=== PATIENT | female | born 1940 | race Caucasian/White ===

== ENCOUNTER 2020-10-11 00:43 | Inpatient (IN) | payer MEDICARE, OTHER, SELFPAY ==
[2020-10-11] VITALS (263 sets, daily range): BP systolic 90–146; BP diastolic 53–93; PULSE 56–103; RESP 9–31; TEMP 35.7–36.9; O2SAT 88–98; BMI 24.2
--- NOTE | 2020-10-11 00:48 | CTR_ITS ---
PROCEDURE INFORMATION: Exam: CT Head Without Contrast Exam date and time: 10/11/2020 12:53 AM Age: 80 years old Clinical indication: Weakness, facial; Additional info: Facial droop TECHNIQUE: Imaging protocol: Computed tomography of the head without contrast. Radiation optimization: All CT scans at this facility use at least one of these dose optimization techniques: automated exposure control; mA and/or kV adjustment per patient size (includes targeted exams where dose is matched to clinical indication); or iterative reconstruction. Other technique: STROKE PROTOCOL was implemented. COMPARISON: CT head wo con* [id number] 07/03/2019 1:36 PM RADIATION DOSE METRICS: Total DLP (mGy-cm): 846.86 FINDINGS: Brain: A small left occipital lobe chronic infarction is noted. Mild atrophy and mild white matter chronic microvascular changes are noted. No hemorrhage or CT evidence of acute infarction is seen. Cerebral ventricles: No ventriculomegaly. Bones/joints: Unremarkable. No acute fracture. Paranasal sinuses: Visualized sinuses are unremarkable. No fluid levels. Mastoid air cells: Visualized mastoid air cells are well aerated. Soft tissues: Unremarkable. CT/CT head wo con* [id number] IMPRESSION: No acute intracranial abnormality. ASSESSMENT: ASPECTS ([place] Stroke Program Early CT Score) is 10. Radiation Dose CTDIVOL = (mGy): DLP = 846.86 (mGy-cm)
--- NOTE | 2020-10-11 00:48 | CTR_ITS ---
PROCEDURE INFORMATION: Exam: CT Chest Without Contrast; Diagnostic Exam date and time: 10/11/2020 12:53 AM Age: 80 years old Clinical indication: Chest pain; Additional info: Cp, mi, stroke TECHNIQUE: Imaging protocol: Diagnostic computed tomography of the chest without contrast. Radiation optimization: All CT scans at this facility use at least one of these dose optimization techniques: automated exposure control; mA and/or kV adjustment per patient size (includes targeted exams where dose is matched to clinical indication); or iterative reconstruction. COMPARISON: [place] Chest 1 [place] [id number] 07/03/2019 12:51 PM RADIATION DOSE METRICS: Total DLP (mGy-cm): 911.06 FINDINGS: Lungs: Mild dependent atelectasis noted. Fissural lymph node at anterior minor fissure. Pleural space: Unremarkable. No pneumothorax. No pleural effusion. Heart: Mitral annular calcifications. Coronary calcifications are noted. Mediastinal space: Small to moderate hiatal hernia. Aorta: There is borderline prominence of ascending aorta measuring 4 cm. Lymph nodes: Unremarkable. No enlarged lymph nodes. Liver: Indeterminate central hepatic lesion measures 2.6 cm . Gallbladder and bile ducts: Cholelithiasis is noted. Gallbladder is otherwise unremarkable with normal wall thickness and volume. No pericholecystic reactive change. Bones/joints: No acute fracture. Soft tissues: Unremarkable. CT/CT chest con [id number] IMPRESSION: No acute findings. Cholelithiasis. Indeterminate liver lesion; recommend further evaluation with liver MRI. Additional details as above. Radiation Dose CTDIVOL = (mGy): DLP = 911.06 (mGy-cm)
--- NOTE | 2020-10-11 00:49 | ECG_ITS ---
[facility] Test Date: 2020-10-11 Pat Name: Jane Roach Department: Room: ICU10 Gender: Female Manager Garden: : 1940 Requested By: Leela Martinez Order Number: [id number] Rivera MD: CHARLOTTE CALVIN Measurements Intervals Rufe Rate: 78 P: 11 TX: 284 QRS: -3 QRSD: 88 T: 78 QT: 354 QTc: 403 Interpretive Statements SINUS RHYTHM WITH FIRST DEGREE AV BLOCK ST ELEVATION, CONSIDER ANTERIOR INJURY [MARKED ST ELEVATION W/O NORMALLY INFLECTED T WAVE IN V2-V5] MARKED ST ELEVATION, CONSIDER INFERIOR INJURY [MARKED ST ELEVATION W/O NORMALLY INFLECTED T WAVE IN II/aVF] ACUTE CT Compared to ECG 07/03/2019 17:57:37 First degree AV block now present ST (T wave) deviation now present Sinus bradycardia no longer present Myocardial infarct finding still present Electronically Signed On 10-11-2020 15:22:17 [email or web address] TEACHER by CHARLOTTE CAVLIN [id number]
--- NOTE | 2020-10-11 01:00 | P.HP_ITS ---
Providers/Chief Complaint Primary Care Provider: Maximo Yee Chief Complaint: stemi History of Present Illness Jane Roach is a 80 year old female past medical history significant for hypertension hyperlipidemia and TIA was having chest pain since Thursday off and on basis, she brushed it off thinking that it is heartburn nearly 1 hour ago chest pain became more consistent and intense, her called 911, EKG strips were consistent with inferior leads ST elevation with anterior reciprocal changes it is the reason STEMI page was alerted. On route patient degenerated into V. fib, few seconds into CPR she reverted back into sinus rhythm and remained stable. It was also noted that she developed facial droop. In the ER twelve-lead EKG was also consistent with inferior wall ST elevation DE with reciprocal changes. Due to new onset of facial droop patient is taken for head CT to rule out intracranial bleed. Medications/Allergies Home Medications Medication Instructions Recorded Confirmed Last Taken Type ascorbic acid (vitamin C) [Vitamin 500 mg PO DAILY 10/11/20 10/11/20 Unknown History C] aspirin 81 mg PO DAILY 10/11/20 10/11/20 Unknown History atenolol 25 mg PO DAILY 10/11/20 10/11/20 Unknown History cholecalciferol (vitamin D3) 25 mcg PO DAILY 10/11/20 10/11/20 Unknown History [Vitamin D3] gabapentin 300 mg PO QID 10/11/20 10/11/20 Unknown History levothyroxine 100 mcg PO DAILY 10/11/20 10/11/20 Unknown History pravastatin 20 mg PO DAILY 10/11/20 10/11/20 Unknown History triamterene-hydrochlorothiazid 1 cap PO DAILY 10/11/20 10/11/20 Unknown History Allergies Allergy/AdvReac Type Severity Reaction Status Date / Time levofloxacin Allergy ALGY-Joint Verified 10/11/20 07:10 Pain lovastatin [From Mevacor] Allergy ADR-Dizzine Verified 10/11/20 07:10 ss PFSH Acute PFSH: Medical History (Updated 10/11/20 @ 12:49 by Shanell Talbot MD) Hyperlipidemia associated with type 2 diabetes mellitus Vitals/I&O/Wt Last Vital Signs Temp 97.4 F L 10/11/20 00:48 Pulse 103 H 10/11/20 00:48 Resp 18 10/11/20 00:48 BP 130/82 10/11/20 00:48 Pulse Ox 94 10/11/20 00:48 Weight last 48 hrs Weight 150 lb Physical Exam Narrative: EXAM NARRATIVE: GENERAL: Patient is alert, awake and oriented x3. Moderate distress NECK: No jugular vein distension. HEENT: No cyanosis. No icterus. No pallor. HEART: Regular S1 and S2. No murmur, rub or gallop. LUNGS: Clear to auscultate bilaterally. ABDOMEN: Soft, nontender and nondistended. Positive bowel sounds. No guarding, rebound or tenderness. CENTRAL NERVOUS SYSTEM: Facial droop EXTREMITIES: Lower extremities without edema bilaterally. Data : 10/11/20 03:47 10/12/20 04:23 A&P Assessment and plan (1) ST elevation DE (STEMI): Status: Acute Qualifiers: Involved coronary artery: right coronary artery Qualified Code(s): I21.11 - ST elevation (STEMI) myocardial infarction involving right coronary artery (2) Shock: Secondary to ST elevation DE of inferior wall. She will be taken to the [facility]. IV bolus followed by pressor Status: Acute Additional A&P Information For ST elevation DE we will take her urgently to [facility]. She will be loaded with Plavix aspirin statin and heparin. All risk benefit and alternative for the procedure has been explained to the patient including major bleed, arrhythmia, stroke, infection, emergent bypass and in worse case scenario. Patient agrees to it. She denies any contraindication to anticoagulation or antiplatelet. Further plan will be advised as per progress of the patient. Attestations Medical Necessity Statement*: I am expecting her stay to cross more than 2 midnight Coding Level of Care Code Acute Hand Upper And Bottom Lacer for [facility] Fwd Diagnoses ST elevation DE (STEMI) I21.11 Involved coronary artery: right coronary artery Shock R57.9
[2020-10-11] MEDS: ondansetron 2 mg/ML SDV 2 mL 4 MG IVP (01:03)
--- NOTE | 2020-10-11 01:06 | XACV_ITS ---
Exam Room: ICU10 Ht: 168 cm Wt: 68 kg BSA: 1.79 m2 Gender: Female : 1940 Exam Priority: Routine Procedure(s): Procedure Description: Diagnostic procedure Procedure Description: Left Heart Catheterization Diagnostic Cath Status: Emergency Diagnostic Findings * LM has 0% stenosis. * LAD has 0% stenosis. * 1st Diag: Mild 40% stenosis, OLLIE: 3 flow. * pCIRC: Moderate 50% stenosis, OLLIE: 3 flow. * Distal Circumflex Coronary Artery: Severe 90% stenosis, OLLIE: 2 flow. * Mid Right Coronary Artery: Severe 100% stenosis, OLLIE: 0 flow. * Coronary angiography shows right dominance. PCI Status: Emergency PCI Indication: STEMI - Immediate PCI for STEMI Interventional Findings * Distal Circumflex Coronary Artery: 90% stenosis treated with MDT R LASHAWN 2.5X12 NATO. 0% residual stenosis, OLLIE: 3 flow. * Mid Right Coronary Artery: 100% stenosis treated with AB TREK 2.25X15 RX BALLOON and MDT R LASHAWN 4.0X18 NATO. 0% residual stenosis, OLLIE: 3 flow. Conclusions 1. There is severe coronary artery disease with two vessel disease. 2. Distal Circumflex Coronary Artery was treated with Drug Eluting Stent. 3. Mid Right Coronary Artery was treated with Balloon and Drug Eluting Stent. Recommendations * 1-Return to inpatient for close monitoring and routine cath care 2-Risk factor modification for secondary prevention 3-Statin and aspirin 81 mg life--long, if tolerated 4-Patient was pre-loaded with 600 mg of Plavix, continue Plavix 75mg p.o. daily for at least one year. We will assess at the end of one year again to continue if further or not 5-Continue optimal medical management 6-Follow up with Dr. Talbot in four weeks and your primary care in 10 days. Interventional RX Recommendation: PCI w/o planned CABG Diagnostic RX Recommendation: PCI w/o planned CABG Pressures Phase:Rest AO : / ( 0 ) @ 7:19:00 PM 185 / 185 ( 69 ) @ 7:35:00 PM Clinical Evaluation EBL: 5mL-10mL Procedural Details Admit Source: Emergency department. Does the consent match the physician's order: N/A Emergent. Identified patient by full name and date of as verbalized by the patient/guarantor. Accurate & Complete Informed Consent: N/A Emergent. Inpatient/Outpatient History & Physical on Chart: N/A Emergent. If H&P is completed, is and addenduem needed: N/A Emergent; If yes, is the addendum complete: N/A Emergent. The risks, benefits, and alternatives of sedation and/or procedure were discussed by physician. The patient agrees to continue. Procedure started. Oxygen started at 3liters/min via nasal canula. bilateral groins was prepped with chloroprep then draped in the usual sterile fashion. Physician notified. Baseline sample Acquired. HR: 81 BPM. Physician arrived. Physician scrubbed in. Immediate Pre-Procedure Time Out. Correct Patient: N/A Emergent; Correct Procedure: Yes; Correct Site: Yes; Correct Patient Position: Yes; Correct Supplies: Yes; Dried Flammable Prep: Yes; Blood Products Available: N/A Emergent. Lidocaine 1% infiltrated to the right groin. Arterial access obtained with micropuncture set. Inventory is CRD 6FR JR 4 GUIDE 100cm. A 6 djiboutian JR4 catheter in over wire. Multiple views taken of right coronary artery. Catheter redirected to the RCA. Inflation number : 1 A AB TREK 2.25X15 RX BALLOON was prepped and advanced across the Mid RCA , then inflated to 18 NEEMA for 0:14 seconds. Results checked. Balloon out. Inflation Number : 2 Rubi Weeks LASHAWN 4.0X18 NATO -Lot Number# [id number] Exp: 06/26/2022 was prepped and advanced across the Mid RCA. The stent was deployed at 18 NEEMA for 0:22 seconds. Stent balloon out over wire. Results checked. [place] wire removed. Guide wire out. A 5 djiboutian JL4 catheter in over wire. Multiple views taken of left coronary artery. Catheter out. Inventory is CRD 6FR XB 3 GUIDE. 6 djiboutian XB 3 guide catheter was inserted over the wire. ACT drawn. ACT drawn. Results 289 seconds. Therapeutic limits - pre-heparin administration 90-150 seconds and monitoring heparin during a vascular procedure >250 seconds. Wire inserted into the Diagonal. Wire redirected into the Circ. wire removed. Inventory is TR 180cm Runthrough NS extra floppy 0.014 wire. Runthrough guidewire was advanced through the guide catheter to lesion in the Circ. Guide catheter out. Inventory is CRD 6FR JL 4 GUIDE. A 6 djiboutian JL4 catheter in over wire. Catheter out. Inventory is CRD 6FR AL 1 GUIDE. A 6 djiboutian AL1 catheter in over wire. Guide catheter out. Inventory is CRD 6FR XB 3 GUIDE. 6 djiboutian XB 3 guide catheter was inserted over the wire. Runthrough guidewire was advanced through the guide catheter to lesion in the Circ. Inflation Number : 1 A RYAN Weeks LASHAWN 2.5X12 NATO -Lot Number# [id number] Exp: 07/21/2022 was prepped and advanced across the Dist CX. The stent was deployed at 18 NEEMA for 0:13 seconds. Inflation number: 2 The stent balloon was then re-inflated across the Dist CX to 20 NEEMA for 0:08 seconds. Results checked. Stent balloon out over wire. Stent inserted to lesion in the distal Circ. Wire out. Drawing ACT. Groin shot performed. ACT drawn. Results 221 seconds. Therapeutic limits - pre-heparin administration 90-150 seconds and monitoring heparin during a vascular procedure >250 seconds. Sheath(s) sutured into position with 2-0 silk and sterile 4x4's and Op-site applied over the site. No oozing or signs and symptoms of hematoma noted. Arterial sheath flushed and connected to tranducer and pressure bag with heparinized saline. Medication's Wasted: Lidocaine 1% = 0 mg. Medication's Wasted: Heparin = 2000units. Medication's Wasted: Other = Fentanyl 50mc. Total IV fluids: 550 mL. Physician scrubbed out. PERRLA. Strong, equal hand body masker bilaterally. PCI Indication: STEMI. Post-op diagnosis: STEMI. Complications: none. Estimated blood loss: 5mL-10mL. Patient transferred by bed to ICU. [facility] Clinical Fraility Score: 4: Vulnerable. Pararescue Craftsman Indications: ACS <= 24 hours. Chest Pain Symptom Assessment: Typical Angina Symptoms. Cardiovascular Instability: Yes, if yes, Ventricular Arrhythmias. Procedure completed. A Suture was successful obtaining hemostatsis at the Right Femoral artery insertion site. Vital chart was stopped. Access Site Site: Right Femoral artery Sheath Size: 6 Fr Hemostasis Method: Suture Hemostasis Success: Successful Procedure Medications Start: 1:13 AM Stop: 1:13 AM Medication: Versed Amount: 1 mg Route: I.V. Start: 1:13 AM Stop: 1:13 AM Medication: Fentanyl Amount: 25 mcg Route: I.V. Start: 1:23 AM Stop: 1:23 AM Medication: Heparin Amount: 7000 units Route: I.V. Start: 1:27 AM Stop: 1:27 AM Medication: Aggrastat 12.5 mg/250 mL Amount: 34 ml Route: I.V. bolus Start: 1:27 AM Stop: 1:27 AM Medication: Aggrastat 12.5 mg/250 mL Amount: 12.2 ml/hr Route: I.V. bolus Start: 1:29 AM Stop: 1:29 AM Medication: 0.9% Saline Amount: 300 ml Route: I.V. bolus Start: 1:49 AM Stop: 1:49 AM Medication: Versed Amount: 1 mg Route: I.V. Start: 1:50 AM Stop: 1:50 AM Medication: Levophed (norepinephrine) Amount: 4 mcg/min Route: I.V. drip Start: 2:15 AM Stop: 2:15 AM Medication: Plavix Amount: 600 mg Route: P.O. I, the attending physician, have reviewed and verified all procedure medications. Yes, all medications given per verbal order History/Risk Factors Hypertension: No Dyslipidemia: No Peripheral Arterial Disease (PAD): No Myocardial Infarction ([place]): No Obesity: No Renal Disease: No Prior Interventions PCI: No CABG: No Valve Surgery: No Report Signatures Finalized by Shanell Talbot MD on 10/28/2020 05:33 PM
--- NOTE | 2020-10-11 01:07 | W.PM.OPSUD ---
Surgery/Procedure H&P Update DATE OF PROCEDURE: October 11, 2020 DATE H&P PERFORMED: 10/11/20 H&P UPDATE INFORMATION: I have examined patient prior to procedure PREOP DIAGNOSIS: STEMI PATIENT REASSESSED PRIOR TO SEDATION, WITH NO CHANGE NOTED: Yes PHYSICAL EXAM: alert, oriented x 3 and clear to auscultation bilaterally AIRWAY EVAL/ANESTHESIA PLAN: ASA II, Risks, benefits & alternatives of sedation and/or procedure discussed and Patient agrees to continue as planned
--- NOTE | 2020-10-11 01:14 | PC.NURSE ---
Pt arrived via EMS with symptom onset at 2330 last night. Pt had EMS zoll pads on. Pt was awake and disoriented. 1st ED ECG was completed at 0046 and given to ED physician in room. 2nd IV placed, ED zoll pads placed, cardiac monitoring. ED physician noted right sided facial droop and pt was taken to CT. ED physician, nurse tech, RN, and houseman accompanied. Beamster responded at 0056 and slabbing machine operator nurses arrived at 0103. Pt departed ED to slabbing machine operator at 0105.
[2020-10-11 01:28] LABS: Hematocrit 43.5 % (37.0-47.0); Hemoglobin 14.6 g/dL (11.5-15.3); Mean Corpuscular HGB Conc 33.6 g/dL (30.0-36.0); Mean Corpuscular Hemoglobin 31.9 pg (28.0-34.0); Mean Platelet Volume 9.6 fL (7.4-10.4); Platelet Count 258 10^3/cmm (130-400); Red Blood Count 4.58 10^6/uL (4.1-5.3); Red Cell Distribution Width 12.4 % (12.1-15.1); White Blood Count 9.6 10^3/uL (4.0-10.0)
[2020-10-11 01:35] LABS: Troponin(5th) Baseline 72 ng/L (0-10)
--- NOTE | 2020-10-11 01:37 | ED_ITS ---
HPI - Chest Pain General: Chief Complaint: Chest Pain Stated Complaint: stemi Time Seen by Provider: 10/11/20 00:48 History of Present Illness: HPI narrative: This patient is a 80-year-old female who was brought in by EMS. They had called a STEMI in the field. She had an episode of chest pain on Thursday that she ignored. Her pain started up again about an hour before she called EMS tonight. She denies history of cardiac disease but has had a stroke in the past. She said the stroke was light and did not leave her with any neurologic problems. She is not able to provide much history because she is in significant distress. She also had a V. fib arrest in the ambulance about 5 minutes out. After 1 round of CPR and 1 shock they got ROSC and she was awake and alert on arrival. On my initial evaluation I noted a right-sided facial droop. MD complaint: chest pain Onset (ago): hour(s) (1 hour, also on Thursday) Timing of current episode: constant Prior episodes: Yes Onset: during rest Pain location: substernal Pain radiation: neck Quality: aching Relieving factors: nothing Exacerbating factors: nothing Review of Systems General: Reports: ROS unobtainable due to medical condition Physical Exam Const: COMMON NORMALS: patient oriented x3 GENERAL APPEARANCE: in distress, anxious, ill appearing and diaphoretic NUTRITIONAL APPEARANCE: overweight HENMT: HEAD & SCALP: normal to inspection FACE & SINUS: face not symmetric Eye: GENERAL EYE: appearance normal, both eyes and all related structures Neck/C-Spine: COMMON NORMALS: supple, no meningeal signs and no JVD Chest: COMMONS NORMALS: normal inspection of the chest Resp: COMMON NORMALS: normal respiratory effort, No use of accessory muscles and clear to auscultation bilaterally AUSCULTATION: clear to auscultation bilaterally Cardio: COMMON NORMALS: no JVD, regular rate, regular rhythm and No murmurs present (Cardio) RATE: regular rate RHYTHM: regular rhythm GI: COMMON NORMALS: Normal to inspection, nondistended, normoactive bowel sounds present, Soft to palpation and non-tender INSPECTION: Yes normal to inspection AUSCULTATION: Yes normoactive bowel sounds PALPATION: Yes Soft to palpation Back/Pelvis: COMMON NORMALS: thoracic and lumbar spine normal to inspection Extremity: COMMON NORMALS: normal to inspection Neuro: COMMON NORMALS: patient oriented x3, moves all extremities, no focal motor deficits and no sensory deficits noted MENINGEAL SIGNS: Yes no meningeal signs CRANIAL NERVES: Yes other (Right-sided facial droop) SPEECH: speech normal Psych: COMMON NORMALS: mental status grossly normal, cooperative and normal affect Skin: COMMON NORMALS: no rashes or lesions noted GENERAL SKIN EXAM: no rashes or lesions noted and pallor Course ED course: STEMI had been called based on EMS EKG. Her EKG here definitely concurred with that assessment. She had marked ST elevation. Was also concerned with her right-sided facial droop and while waiting for the cath team to arrive we got a noncontrast CT head and chest. I do not see any evidence of hemorrhage or dissection on that. She went to the Car Park Attendant with Dr. Talbot shortly after the CT. Vital Signs: Vital signs: Vital Signs Temperature 96.5 F L 10/11/20 04:05 Pulse Rate 80 10/11/20 05:15 Respiratory Rate 18 10/11/20 05:15 Blood Pressure 127/85 10/11/20 05:15 Pulse Oximetry 97 10/11/20 05:15 MDM - Chest Pain Lab Data: Labs: Lab Results 10/11/20 10/11/20 10/11/20 Range/Units 00:52 00:52 00:52 WBC 9.6 (4.0-10.0) 10^3/ uL RBC 4.58 (4.1-5.3) 10^6/u L Hgb 14.6 (11.5-15.3) g/dL Hct 43.5 (37.0-47.0) % MCV 95.0 (81-99) fL MCH 31.9 (28.0-34.0) pg MCHC 33.6 (30.0-36.0) g/dL RDW 12.4 (12.1-15.1) % Plt Count 258 (130-400) 10^3/c mm MPV 9.6 (7.4-10.4) fL Lymph % (Auto) Not Reportable [place] % (Auto) Not Reportable Lymph # (Auto) Not Reportable [place] # (Auto) Not Reportable Total Counted 100 (0-100) Atypical Lymphs % 0.0 (0-5) % Absolute Neutrophi ls 3.6 (1.4-6.5) 10^3/c mm Segmented Neutroph ils 37 % Abs Segm Neuts (Ma n) 3.6 (1.6-7.1) 10/cmm Band Neutrophils 0.0 % Abs Band Neuts (Ma n) 0.0 (0.0-1.2) 10^3/c mm Lymphocytes (Manua l) 52 % Monocytes (Manual) 10.0 % Absolute Monocytes 1.0 H (0.1-0.6) 10^3/c mm Eosinophils (Manua l) 1 % Absolute Eosinophi ls 0.0 (0.0-0.7) 10^3/c mm Basophils (Manual) 0.0 % Absolute Basophils 0.0 (0.0-0.2) 10^3/c mm Platelet Estimate Normal (Normal) Anisocytosis Trace PT 13.50 (12.1-14.9) SECO NDS INR 1.00 (0.8-1.2) Sodium 142 (136-145) mmol/L Potassium 3.4 L (3.5-5.1) mmol/L Chloride 103 (98-107) mmol/L Carbon Dioxide 27 (22-29) mmol/L Anion Gap 15.4 (5-19) BUN 18 (8-23) mg/dL Creatinine 0.8 (0.5-0.9) mg/dL GFR Calculation Not Reportable Glucose 161 H (65-115) mg/dL Calculated Osmolal ity 299 H (285-295) mOsm/k g Calcium 10.2 (8.5-10.5) mg/dL Total Bilirubin 0.2 (0.15-1.2) mg/dL AST 21 (0-32) U/L ALT 17 (0-33) U/L Alkaline Phosphata se 106 H (35-105) IU/L Troponin T Baselin e (0-10) ng/L NT-Pro-B Natriuret Pep 89 (0-450) pg/mL Total Protein 6.9 (6.6-8.7) g/dL Albumin 4.2 (3.5-5.2) g/dL Globulin 2.7 (1.3-4.6) g/dL Lipase 27 (13-60) U/L 10/11/20 Range/Units 00:52 WBC (4.0-10.0) 10^3/ uL RBC (4.1-5.3) 10^6/u L Hgb (11.5-15.3) g/dL Hct (37.0-47.0) % MCV (81-99) fL MCH (28.0-34.0) pg MCHC (30.0-36.0) g/dL RDW (12.1-15.1) % Plt Count (130-400) 10^3/c mm MPV (7.4-10.4) fL Lymph % (Auto) [place] % (Auto) Lymph # (Auto) [place] # (Auto) Total Counted (0-100) Atypical Lymphs % (0-5) % Absolute Neutrophi ls (1.4-6.5) 10^3/c mm Segmented Neutroph ils % Abs Segm Neuts (Ma n) (1.6-7.1) 10/cmm Band Neutrophils % Abs Band Neuts (Ma n) (0.0-1.2) 10^3/c mm Lymphocytes (Manua l) % Monocytes (Manual) % Absolute Monocytes (0.1-0.6) 10^3/c mm Eosinophils (Manua l) % Absolute Eosinophi ls (0.0-0.7) 10^3/c mm Basophils (Manual) % Absolute Basophils (0.0-0.2) 10^3/c mm Platelet Estimate (Normal) Anisocytosis PT (12.1-14.9) SECO NDS INR (0.8-1.2) Sodium (136-145) mmol/L Potassium (3.5-5.1) mmol/L Chloride (98-107) mmol/L Carbon Dioxide (22-29) mmol/L Anion Gap (5-19) BUN (8-23) mg/dL Creatinine (0.5-0.9) mg/dL GFR Calculation Glucose (65-115) mg/dL Calculated Osmolal ity (285-295) mOsm/k g Calcium (8.5-10.5) mg/dL Total Bilirubin (0.15-1.2) mg/dL AST (0-32) U/L ALT (0-33) U/L Alkaline Phosphata se (35-105) IU/L Troponin T Baselin e 72 H (0-10) ng/L NT-Pro-B Natriuret Pep (0-450) pg/mL Total Protein (6.6-8.7) g/dL Albumin (3.5-5.2) g/dL Globulin (1.3-4.6) g/dL Lipase (13-60) U/L Discharge Plan Discharge Admit Provider: Shanell Talbot Coding Level of Care Code ED Laboratory Technical Specialist for Chg Fwd Exam Comprehensive
[2020-10-11 01:44] LABS: Alanine Aminotransferase 17 U/L (0-33); Albumin Level 4.2 g/dL (3.5-5.2); Alkaline Phosphatase 106 IU/L (35-105); Anion Gap 15.4 (5-19); Aspartate Amino Transferase 21 U/L (0-32); Blood Urea Nitrogen 18 mg/dL (8-23); Calcium 10.2 mg/dL (8.5-10.5); Carbon Dioxide 27 mmol/L (22-29); Chloride 103 mmol/L (98-107); Globulin 2.7 g/dL (1.3-4.6); Glucose 161 mg/dL (65-115); Lipase 27 U/L (13-60); NT Pro B Type Natriuretic Pept 89 pg/mL (0-450); Osmolality Calculated 299 mOsm/kg (285-295); Potassium 3.4 mmol/L (3.5-5.1); Sodium 142 mmol/L (136-145); Total Bilirubin 0.2 mg/dL (0.15-1.2); Total Protein 6.9 g/dL (6.6-8.7)
[2020-10-11 01:50] LABS: Absolute Segmented Neutrophil 3.6 10/cmm (1.6-7.1); Anisocytosis Trace; Eosinophils 1 %; Lymphocytes 52 %; Segmented Neutrophils 37 %; Total Cells Counted 100 (0-100)
[2020-10-11 01:51] LABS: Absolute Neutrophil 3.6 10^3/cmm (1.4-6.5); Platelet Estimate Normal (Normal)
[2020-10-11] MEDS: HYDROcodone-acetaminophen 5-325 mg Tablet 1 TAB PO ×2 (02:59→17:21)
--- NOTE | 2020-10-11 03:27 | PC.NURSE ---
Admission: Patient arrives to ICU10 from cath lab technologist on ICU bed, and on 2L NC with SPO2 98%. Material Handling Equipment [employer] Nursing staff X's 2, with MD Rhodes at bedside for transport. Patient arrived with NS, Levo 4mcg/min, and Aggrastat 12.2mL/hr. Personal Belongings that arrived with patient included her clothing, and purse which are both at bedside with patient. Temp taken both orally and axillary, with a temp of 96.3 underarm. Warm blankets from blanket warmer placed on patient for warming effects. MD gave V/O for NS to be running at 100mL/hr. Titrate Levo according to patient's BP/MAP. Instructed RN to d/c Aggrastat at 0430 And for medical staff manager to hold pressure femoral site for 25 mins when pulling sheath. Patient c/o severe pain in throat and upper chest. RN gave PO pain medication to assist with pain control. EKG completed, with results inside of chart. Art pressures being monitored closely. Pulses equal/bounding bilaterally throughout body and being monitored Q15 mins with cath site per Post Cath flowsheet. Patient verbalized want for anisha Roach to be primary visitor during time of stay.
--- NOTE | 2020-10-11 04:00 | PC.NURSE ---
Arrhythmia [id number] Patient sustained VPC run. Hemodynamically stable. Continues to complain of CP but reports chest pain better than before. After episode patient returned to sinus rhythm with first degree AV block. Dr. Talbot notified, no new orders. Event strip placed in chart.Will continue to monitor.
[2020-10-11 04:41] LABS: Basophils % 0.3 %; Eosinophils % 0.4 %; Hematocrit 43.3 % (37.0-47.0); Lymphocytes # 1.3 10^3/uL (0.8-4.8); Lymphocytes % 14.5 %; Mean Corpuscular HGB Conc 32.3 g/dL (30.0-36.0); Mean Corpuscular Volume 99.1 fL (81-99); Mean Platelet Volume 9.5 fL (7.4-10.4); Monocytes # 0.4 10^3/uL (0.2-0.9); Monocytes % 3.8 %; Neutrophils # 7.34 10^3/uL (1.8-7.7); Neutrophils % 80.6 %; Nucleated Red Blood Cells % 0 %; Platelet Count 256 10^3/cmm (130-400); Red Blood Count 4.37 10^6/uL (4.1-5.3); Red Cell Distribution Width 12.3 % (12.1-15.1); White Blood Count 9.1 10^3/uL (4.0-10.0)
--- NOTE | 2020-10-11 04:44 | PC.NURSE ---
Amrit Harris applied based on patient's current temps of 95.6 Axillary.
[2020-10-11] MEDS: sodium chloride 0.9% 1,000 ML 100 ML IV ×2 (04:51→15:03)
[2020-10-11 05:14] LABS: Anion Gap 17.2 (5-19); Blood Urea Nitrogen 16 mg/dL (8-23); Calcium 9.5 mg/dL (8.5-10.5); Carbon Dioxide 22 mmol/L (22-29); Chloride 102 mmol/L (98-107); Glucose 155 mg/dL (65-115); Osmolality Calculated 290 mOsm/kg (285-295); Potassium 3.2 mmol/L (3.5-5.1); Sodium 138 mmol/L (136-145)
--- NOTE | 2020-10-11 06:25 | PC.NURSE ---
Shift Summary: Patient temp has increased with application of bear hugger. She requests for blanket to stay on as a personal request, as she still feels cold. She told RN that she had previously been seen by a account director back in 2017 for a extra heart tone, and she states that it resolved with the recommendation from her account director of quit drinking caffeine. Patient had a couple of runs of multiple PVC's this early AM. Those strips have been printed off, and placed inside of chart. RN at bedside when both episodes presented. Second EKG was ready to be done by ANTENNA DESIGN ENGINEER, but patient was non-symptomatic and rhythm had returned to normal once leads placed. At this time she c/o some mild chest pain in upper aspect of chest with some throat pain as well being reported. She reports living an active lifestyle with no lifestyle changes or limitations up to this date/event. She reports allergies to sulfur, mevlapor (sp?), and Levaquin. Mini Stroke reported as of 2019, with no reported s/s, or alterations in health status. 400 u/o. NS@ 100mL/hr Levo off around 0400 this AM, and pressures have sustained w/in normal indexes. Art pressures mimic those of SBP/DBP. No other needs verbalized at this time.
[2020-10-11 06:33] LABS: Troponin 5 2HR 1436 ng/L (0-10)
[2020-10-11 06:34] LABS: Troponin 5 2HR Delta 1364 ABS# (0-10)
[2020-10-11 06:45] LABS: Partial Thromboplastin Time 156.9 SECONDS (23.9-36.7)
[2020-10-11 07:35] LABS: Troponin 5 6HR 6017 ng/L (0-10); Troponin 5 6HR Delta 5945 ng/L (0-12)
--- NOTE | 2020-10-11 07:48 | PC.NURSE ---
rounding Patient alert and oriented upon nurses arrival. vital signs WNL. requiring 1.5L of oxygen via NC. bear hugger in place for patient comfort and temperature, oral temp of 97.7. Right femoral sheath in place. site is clean and intact, connect to pressure bag. patient having complaint of chest soreness at this time, educated on CPR from earlier in the day.
--- NOTE | 2020-10-11 08:56 | PC.NURSE ---
Aggrastat Aggrastat not documented on arrival of this nurses shift. On report from LEORA Vanegas Aggrastat was stopped at 0500AM this morning. Medication pulled by Baylee Bowen RN in laborer/grade check. currently, this medication is NOT running. spoke with Nichelle from pharmacy and updated on medication not be scanned on infusion start/stop time. Charge nurse notified.
[2020-10-11] MEDS: aspirin 81 mg EC Tablet PO (09:06)
[2020-10-11 10:51] LABS: Partial Thromboplastin Time 29.6 SECONDS (23.9-36.7)
[2020-10-11] MEDS: fentaNYL 50 mcg/mL INJ 2mL IVP (11:02)
--- NOTE | 2020-10-11 11:38 | PC.NURSE ---
Sheath pulled sheath pulled at 1110 by nurse. 50mcg of Fentanyl given to patient prior to pull, see MAR.pulses marked prior to pull. small hematoma noted by nurse during pull. pressure held for 25 minutes. pedal pulses present after seath removal, good cap refill. pressure dressing in place. no bleeding present. vital signs WNL before/during/after. at bedside. informed of pull. will continue to monitor.
--- NOTE | 2020-10-11 12:16 | USCV_ITS ---
Jane Roach Age: 80 Gender: F : 1940 Exam Date: 10/11/2020 06:09 Ordering Phys: Shanell Talbot MD ([email or web address]) Technologist: Echo Zaragoza Exam Location: [facility] [place] Indication: STEMI WITH STENTS BP: 121 / 83 HR: 71 Rhythm: Sinus Technical Quality: Adequate MEASUREMENTS (Male / Female) Normal Values 2D ECHO LV Diastolic Diameter PLAX 2.1 cm 4.2 - 5.9 / 3.9 - 5.3 cm LV Systolic Diameter PLAX 1.9 cm LV Chamber Size 2.8 cm IVS Diastolic Thickness 1.3 cm 0.6 - 1.0 / 0.6 - 0.9 cm IVS Systolic Thickness 1.3 cm LVPW Diastolic Thickness 1.2 cm 0.6 - 1.0 / 0.6 - 0.9 cm LVPW Systolic Thickness 1.5 cm RV Chamber Size 2.5 cm LVOT Diameter 2.0 cm LV Ejection Fraction 2D Teich 9.3 % LV Ejection Fraction MOD 2C 68.6 % LV Ejection Fraction 2C AL 70.0 % LA Diameter 3.3 cm LA Width 2.7 cm LA Height 4.9 cm RA Width 3.5 cm RA Height 5.1 cm Aorta at Sinotubular Diameter 2.5 cm M-MODE LV Diastolic Diameter MM 3.8 cm 4.2 - 5.9 / 3.9 - 5.3 cm LV Systolic Diameter MM 3.0 cm LV Ejection Fraction MM Teich 40.9 % IVS Diastolic Thickness MM 1.1 cm 0.6 - 1.0 / 0.6 - 0.9 cm IVS Systolic Thickness MM 1.3 cm LVPW Diastolic Thickness MM 1.1 cm 0.6 - 1.0 / 0.6 - 0.9 cm LVPW Systolic Thickness MM 1.2 cm RV Diastolic Diameter MM 1.0 cm Aortic Annulus Diameter 3.4 cm LA Ao Ratio MM 1.0 MV E Point Septal Separation 1.3 cm DOPPLER AV Peak Velocity 114.0 cm/s LVOT Peak Velocity 80.0 cm/s AV Area Cont Eq vti 2.0 cm squared AV Area Cont Eq pk 2.3 cm squared MV Area PHT 6.5 cm squared Mitral E to A Ratio 0.5 MV E' Velocity 43.0 cm/s Mitral E to MV E' Ratio 17.2 Mitral E to LV E' Lateral Ratio 15.5 Mitral E to LV E' Septal Ratio 19.7 TR Peak Velocity 132.0 cm/s TR Peak Gradient 7.0 mmHg TR Mean Velocity 161.6 cm/s TR Mean Gradient 11.3 mmHg TR Velocity Time Integral 72.5 cm TV Peak E Velocity 103.0 cm/s Right Atrial Pressure 3.0 mmHg Pulmonary Artery Systolic Pressu 10.0 mmHg PV Peak Velocity 48.0 cm/s RV Acceleration Time 0.2 s RV Ejection Time 0.3 s RV AcT/ET 0.5 FINDINGS Left Ventricle Normal left ventricular cavity size. Normal left ventricular systolic function. No regional wall motion abnormalities. Left ventricular ejection fraction is estimated at 55 %.Grade I/IV diastolic dysfunction (abnormal relaxation filling pattern), normal to mildly elevated filling pressures. Right Ventricle The right ventricle is normal in size and function. Right Atrium The right atrium is normal in size. Left Atrium The left atrium is normal in size. Mitral Valve Severe mitral annular calcification. No mitral valve stenosis. Mild-moderate mitral valve regurgitation. Aortic Valve Severe aortic valve calcification. Mild aortic valve stenosis, mean gradient 2.9 mmHg, SHAYY 2 cm squared. Mild aortic valve regurgitation. Tricuspid Valve [id number] tricuspid valve regurgitation. Pulmonic Valve Structurally normal pulmonic valve without significant stenosis. There is no pulmonic regurgitation. Pericardium Normal pericardium without effusion. Aorta Normal ascending aorta dimension. CONCLUSIONS 1-Normal left ventricular cavity size. Normal left ventricular systolic function. No regional wall motion abnormalities. Left ventricular ejection fraction is estimated at 55 %.Grade I/IV diastolic dysfunction (abnormal relaxation filling pattern), normal to mildly elevated filling pressures. 2-Severe aortic valve calcification. Mild aortic valve stenosis, mean gradient 2.9 mmHg, SHAYY 2 cm squared. Mild aortic valve regurgitation. 3-Severe mitral annular calcification. No mitral valve stenosis. Mild-moderate mitral valve regurgitation. 7-Bpyb-gz-moderate tricuspid valve regurgitation. 5-There is no pericardial effusion. 6-Right atrial pressure is around 5 mm of mercury. 7-No significant change since the prior echocardiogram study of 07/03/2019. Shanell Talbot MD (Electronically Signed) Final Date: 11 October 2020 16:11 S
--- NOTE | 2020-10-11 12:37 | PC.NURSE ---
family visit approved for son Danny to come in today and see mother. Charge nurse, warehouse man, and security notified.
--- NOTE | 2020-10-11 12:46 | P.PN_ITS ---
Subjective Subjective: Interval history: Status post ST elevation PA and PCI to mid RCA and mid circumflex Vitals/I&O/Wt Last Vital Signs Temp 98.2 F 10/11/20 12:05 Pulse 64 10/11/20 12:05 Resp 13 10/11/20 12:05 BP 110/66 10/11/20 12:05 Pulse Ox 94 10/11/20 12:05 10/10/20 10/11/20 10/11/20 22:59 06:59 14:59 Intake Total 300.088 / 300.088 300 / 300 Output Total 600 / 600 Balance -299.912 / -299.912 300 / 300 Weight last 48 hrs Weight 150 lb Physical Exam Narrative: EXAM NARRATIVE: GENERAL: Patient is alert, awake and oriented x3. NECK: No jugular vein distension. HEENT: No cyanosis. No icterus. No pallor. HEART: Regular S1 and S2. No murmur, rub or gallop. LUNGS: Clear to auscultate bilaterally. ABDOMEN: Soft, nontender and nondistended. Positive bowel sounds. No guarding, rebound or tenderness. CENTRAL NERVOUS SYSTEM: Facial droop EXTREMITIES: Lower extremities without edema bilaterally. Const: COMMON NORMALS: alert Resp: COMMON NORMALS: clear to auscultation bilaterally AUSCULTATION: clear to auscultation bilaterally Neuro: SENSORIUM/ORIENTATION: Yes alert Data : 10/11/20 03:47 10/11/20 03:47 A&P Assessment and plan (1) ST elevation PA (STEMI): Stable. Denies any more chest pain. Troponin peaked to 6000 now dec . Blood pressure has improved she is off pressors. Continue aspirin statin will add beta-aaron today and JOSE MARTIN inhibitor before discharge since blood pressure is on the lower side. Echocardiogram to assess LV function. Status: Acute Qualifiers: Involved coronary artery: right coronary artery Qualified Code(s): I21.11 - ST elevation (STEMI) myocardial infarction involving right coronary artery (2) Shock: Resolved Status: Acute (3) Hyperlipidemia associated with type 2 diabetes mellitus: Patient reports severe allergy to atorvastatin as muscle aches and pain. She cannot tolerate pravastatin. We will start her on pravastatin. We will check her lipid profile in the morning. Status: Acute Additional A&P Information For ST elevation PA we will take her urgently to Environmental Sampler. She will be loaded with Plavix aspirin statin and heparin. All risk benefit and alternative for the procedure has been explained to the patient including major bleed, arrhythmia, stroke, infection, emergent bypass and in worse case scenario. Patient agrees to it. She denies any contraindication to anticoagulation or antiplatelet. Further plan will be advised as per progress of the patient. Attestations Medical Necessity Statement*: Patient require continuation hospitalization post STEMI Coding Level of Care Code Established Pt Acute Catering Attendant for Milad Coronado Patient Type Established History Detailed Exam Detailed Medical Decision Making Moderate Complexity Diagnoses ST elevation PA (STEMI) I21.11 Involved coronary artery: right coronary artery Shock R57.9 Hyperlipidemia associated with type 2 diabetes mellitus E11.69; E78.5
[2020-10-11 13:32] LABS: Chol HDL Ratio 3.74 mg/dL (0.0-4.40); Cholesterol 142 mg/dL (0-200); HDL Cholesterol 38 mg/dL (60-100); LDL Cholesterol Calculated 82 mg/dL (50-129); LDL HDL Ratio 2.16 RATIO (0.00-3.22); Triglycerides 109 mg/dL (0-150)
--- NOTE | 2020-10-11 17:03 | XRR_ITS ---
PROCEDURE INFORMATION: Exam: XR Chest, 1 View Exam date and time: 10/11/2020 5:14 PM Age: 80 years old Clinical indication: Chest pain; Additional info: Chest soreness post cpr TECHNIQUE: Imaging protocol: XR of the chest Views: 1 view. COMPARISON: CT chest [facility] [id number] 10/11/2020 12:46 AM FINDINGS: Lungs: Unremarkable. No consolidation. Pleural space: Unremarkable. No pleural effusion. No pneumothorax. Heart/Mediastinum: Unremarkable. No cardiomegaly. 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 Bones/joints: Unremarkable. XR/XR chest 1V portable [id number] IMPRESSION: No acute finding.
--- NOTE | 2020-10-11 17:07 | PC.NURSE ---
ambulation patient able to ambulate from bed to bedside commode with two nurse assist. patent then ambulated from bedside commode to chair. when standing up from bedside commode to chair, patient stated that she had chest tenderness. patient states that this is a tender pain that rates 4/10. does not radiate anywhere and does not feel like chest pain . vital signs WNL. no new rhythm changed noted. xray ordered per protocol.
--- NOTE | 2020-10-11 17:24 | ECG_ITS ---
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: : 1940 Requested By: Shanell Talbot Order Number: [id number] Reading MD: SHANELL TALBOT Measurements Intervals [place] Rate: 67 P: 8 HI: 184 QRS: -25 QRSD: 90 T: -24 QT: 400 QTc: 422 Interpretive Statements SINUS RHYTHM POSSIBLE ANTERIOR MYOCARDIAL INFARCTION [30 ms Q WAVE IN V3/V4, OR R < 0.2 mV IN V4], PROBABLY OLD INFERIOR MYOCARDIAL INFARCTION [40+ ms Q WAVE AND/OR ST/T ABNORMALITY IN II/aVF], PROBABLY OLD Compared to ECG 10/11/2020 00:46:29 First degree AV block no longer present ST (T wave) deviation no longer present Myocardial infarct finding still present Electronically Signed On 10-12-2020 20:05:51 VISUAL MERCHANDISING MANAGER by SHANELL TALBOT [email or web address]
--- NOTE | 2020-10-11 17:40 | PC.NURSE ---
call to physician Nurse informed of change in patient pain. telephone order to get EKG also. Vital signs WNL.
[2020-10-12] VITALS (92 sets, daily range): BP systolic 95–138; BP diastolic 53–79; PULSE 55–86; RESP 9–26; TEMP 37.1; O2SAT 79–97
[2020-10-12] MEDS: sodium chloride 0.9% 1,000 ML 100 ML IV (02:30)
[2020-10-12 05:32] LABS: Anion Gap 9.6 (5-19); Blood Urea Nitrogen 13 mg/dL (8-23); Calcium 9.1 mg/dL (8.5-10.5); Carbon Dioxide 28 mmol/L (22-29); Chloride 106 mmol/L (98-107); Glucose 106 mg/dL (65-115); Osmolality Calculated 291 mOsm/kg (285-295); Potassium 3.6 mmol/L (3.5-5.1); Sodium 140 mmol/L (136-145)
--- NOTE | 2020-10-12 06:46 | PC.NURSE ---
Shift Summary: No big events overnight. Education on possible s/s of STEMI was given, and some beneficial lifestyle modifications. Patient was able to sleep well for majority of night. No PRN pain medications needed overnight. Patient was educated on HDL and LDL cholesterol levels as well. Patient is also anxious to go home. And has stated that a walker may be helpful for when she is d/c, and returns back home. NS @100mL/hr. 300 u/o Currently up to chair. No needs verbalized at this time.
[2020-10-12] MEDS: aspirin 81 mg EC Tablet PO (08:49)
[2020-10-12] MEDS: atorvastatin 40 mg Tablet 20 MG PO (08:49)
[2020-10-12] MEDS: gabapentin 300 mg Capsule PO ×3 (10:56→20:13)
[2020-10-12] MEDS: metoprolol tartrate 25 mg Tablet 12.5 MG PO ×2 (10:56→17:23)
--- NOTE | 2020-10-12 14:29 | PC.NURSE ---
transfered to room 112 on [facility]
--- NOTE | 2020-10-12 17:54 | PM.PN ---
Subjective Subjective: Interval history: She is feeling better today she is constipated stable vital fox Medications: Reviewed: Yes Vitals/I&O/Wt Last Vital Signs Temp 98.7 F 10/12/20 16:00 Pulse 79 10/12/20 16:49 Resp 16 10/12/20 16:00 BP 138/76 10/12/20 16:00 Pulse Ox 96 10/12/20 16:49 10/12/20 10/12/20 10/12/20 06:59 14:59 22:59 Intake Total 1100 / 2900 550 / 550 Output Total 400 / 400 Balance 1100 / 2900 150 / 150 Weight last 48 hrs Weight 150 lb Physical Exam Narrative: EXAM NARRATIVE: GENERAL: Patient is alert, awake and oriented x3. NECK: No jugular vein distension. HEENT: No cyanosis. No icterus. No pallor. HEART: Regular S1 and S2. No murmur, rub or gallop. LUNGS: Clear to auscultate bilaterally. ABDOMEN: Soft, nontender and nondistended. Positive bowel sounds. No guarding, rebound or tenderness. CENTRAL NERVOUS SYSTEM: Facial droop EXTREMITIES: Lower extremities without edema bilaterally. Const: COMMON NORMALS: alert Resp: COMMON NORMALS: clear to auscultation bilaterally AUSCULTATION: clear to auscultation bilaterally Neuro: SENSORIUM/ORIENTATION: Yes alert Data : 10/11/20 03:47 10/12/20 04:23 A&P Assessment and plan (1) ST elevation [place] (STEMI): Stable doing fine from cardiovascular perspective. Continue aspirin statin beta-aaron and Plavix. Status: Acute Qualifiers: Involved coronary artery: right coronary artery Qualified Code(s): I21.11 - ST elevation (STEMI) myocardial infarction involving right coronary artery (2) Shock: Resolved. Status: Acute (3) Generalized weakness: We will involve physical therapy to promote strength. Patient is not able to take care of herself. Right groin looks good Status: Acute Additional A&P Information For ST elevation [place] we will take her urgently to Motor Vehicle Representative. She will be loaded with Plavix aspirin statin and heparin. All risk benefit and alternative for the procedure has been explained to the patient including major bleed, arrhythmia, stroke, infection, emergent bypass and in worse case scenario. Patient agrees to it. She denies any contraindication to anticoagulation or antiplatelet. Further plan will be advised as per progress of the patient. Attestations Medical Necessity Statement*: Require continuation hospitalization for above defined care. Coding Level of Care Code Established Pt Acute Gas Meter Prover for Milad Coronado Patient Type Established History Detailed Exam Detailed Medical Decision Making Moderate Complexity Diagnoses ST elevation [place] (STEMI) I21.11 Involved coronary artery: right coronary artery Shock R57.9 Generalized weakness R53.1
[2020-10-12] MEDS: clopidogrel 75 mg Tablet PO (18:27)
[2020-10-13] VITALS (9 sets, daily range): BP systolic 125–157; BP diastolic 73–94; PULSE 68–82; RESP 16–26; TEMP 36.7–37.4; O2SAT 90–96
[2020-10-13] MEDS: clopidogrel 75 mg Tablet PO (08:42)
[2020-10-13] MEDS: aspirin 81 mg EC Tablet PO (08:42)
[2020-10-13] MEDS: gabapentin 300 mg Capsule PO (08:43)
[2020-10-13] MEDS: pantoprazole DR 40 mg Tablet PO (08:43)
[2020-10-13] MEDS: metoprolol tartrate 25 mg Tablet 12.5 MG PO (08:45)
--- NOTE | 2020-10-13 14:35 | PM.DCS ---
Discharge Providers Date of Admission: 10/11/20 01:57 Date of Discharge: October 13, 2020 Attending Provider at Admission: Shanell Talbot MD Attending Provider at Discharge: Shanell Talbot MD Primary Care Provider: Maximo Yee Diagnoses at Discharge Discharge Diagnosis (1) ST elevation [place] (STEMI): Status: Acute Qualifiers: Involved coronary artery: right coronary artery Qualified Code(s): I21.11 - ST elevation (STEMI) myocardial infarction involving right coronary artery (2) Shock: Status: Acute (3) Generalized weakness: Status: Acute Reason for Visit Reason for Visit: stemi Hospital Course Hospital Course 80-year-old female past medical significant for hypertension hyperlipidemia for ST elevation [place] and event emergent coronary angiogram found to have complete occlusion of mid RCA treated with drug-eluting stent during the same angiogram it was learned patient has moderate size and caliber circumflex which was 80% stenotic it was also treated with drug-eluting stent. Patient was given IV fluid postop due to hypotension and cardiogenic shock along with pressors. She was weaned off of pressors over next 24 hours. Her medicines were optimized. She is doing much better and moving around right groin has mild bruising otherwise no hematoma no thrill no bruit. Today she would like to go home. She is being discharged. Physical Exam Narrative: EXAM NARRATIVE: GENERAL: Patient is alert, awake and oriented x3. NECK: No jugular vein distension. HEENT: No cyanosis. No icterus. No pallor. HEART: Regular S1 and S2. No murmur, rub or gallop. LUNGS: Clear to auscultate bilaterally. ABDOMEN: Soft, nontender and nondistended. Positive bowel sounds. No guarding, rebound or tenderness. CENTRAL NERVOUS SYSTEM: Facial droop EXTREMITIES: Lower extremities without edema bilaterally. Const: COMMON NORMALS: alert Resp: COMMON NORMALS: clear to auscultation bilaterally AUSCULTATION: clear to auscultation bilaterally Neuro: SENSORIUM/ORIENTATION: Yes alert Discharge Data Data Completed and Pending: Completed Studies During Hospitalization Category Date Time Status CT chest wo con 7 1250 Urgent Cat Scan 10/11/20 00:[address] head wo con* 7 0450 Urgent Cat Scan 10/11/20 00:48 Completed XR chest 1V damaris ble 12096 Routine Exams 10/11/20 17:03 Completed CV echo complete* [id number] Routine Ultrasound 10/11/20 12:16 Completed Pending at discharge Category Date Time Status SHAPER MACHINE HAND request for service Stat Exams 10/11/20 01:06 Taken Vitals: Last Vital Signs Temp 99.4 F 10/13/20 11:05 Pulse 71 10/13/20 11:05 Resp 19 H 10/13/20 11:05 BP 139/84 10/13/20 11:05 Pulse Ox 94 10/13/20 11:05 Discharge Plan Discharge Patient Disposition: Home Condition: Stable Prescriptions: New clopidogrel 75 mg Tablet 75 mg PO DAILY Qty: 90 RF: 4 metoprolol tartrate 25 mg Tablet 12.5 mg PO BID Qty: 60 RF: 4 pantoprazole 40 mg Tablet,Delayed Release (Dr/Ec) 40 mg PO DAILY Qty: 90 RF: 3 Discontinued atenolol 50 mg tablet 25 mg PO DAILY RF: 0 No Action triamterene-hydrochlorothiazid 37.5-25 mg capsule 1 cap PO DAILY RF: 0 levothyroxine 100 mcg tablet 100 mcg PO DAILY RF: 0 gabapentin 300 mg capsule 300 mg PO QID RF: 0 aspirin 81 mg Tablet 81 mg PO DAILY RF: 0 pravastatin 20 mg tablet 20 mg PO DAILY RF: 0 Vitamin C 500 mg Tablet 500 mg PO DAILY RF: 0 Vitamin D3 25 mcg (1,000 unit) Capsule 25 mcg PO DAILY RF: 0 Discharge Orders: Discharge Order (Routine); Ordered 10/13/20 Ordered By: Shanell Talbot Referrals: Ben Garcia [Family Provider] - Maximo Yee FNP [Primary Care Provider] - Discharge Diet: Cardiac Discharge Activity: Increase activity as tolerated Patient Instructions: Left Heart Catheterization (DC), Coronary Angioplasty (DC) Activity Restrictions/Additional Instructions: Follow-up with Daily Perez in 7 to 10 days, follow-up with Dr. Olsen in 3 months. Please take clopidogrel and pantoprazole 8 hours apart. Discharge Attestations Time Spent in Discharge Care*: greater than 30 min Specific Discharge Activities: educating patient Quality Metrics Clinical Quality Measures During this hospital stay, did patient experience: AMI Clinical Trial Participant: No Contraindication to aspirin (AMI): Aspirin given Contraindication to statin: Statin prescribed Contraindication to PCI: PCI performed Coding Level of Care Code Acute Social Insurance Analyst for [facility] Fwd Diagnoses ST elevation IN (STEMI) I21.11 Involved coronary artery: right coronary artery Shock R57.9 Generalized weakness R53.1
== END 2020-10-13 15:51 | disposition home or self-care (01) | DRG 247 ==
LOC: ER 01:38 → ICU 01:58 → CSU 10-12 14:19
PROVIDERS: Admitting Provider Internal Medicine Cardiovascular Disease; Emergency Provider Emergency Medicine; Family Provider Physician Assistant Medical; PCP Nurse Practitioner Family; Visit Provider Internal Medicine Cardiovascular Disease
PROC: 027135Z Dilation of Coronary Artery, Two Arteries with Two Drug-eluting Intraluminal Devices, Percutaneous Approach (ICD-10-PCS; principal; 2020-10-11 01:00)
PROC: 027135Z Dilation of Coronary Artery, Two Arteries with Two Drug-eluting Intraluminal Devices, Percutaneous Approach (ICD-10-PCS; 2020-10-11 01:00)
DX: I21.11 ST elevation (STEMI) myocardial infarction involving right coronary artery (principal); R57.9 Shock, unspecified; I10 Essential (primary) hypertension; E11.69 Type 2 diabetes mellitus with other specified complication; Z79.82 Long term (current) use of aspirin; Z86.73 Personal history of transient ischemic attack (TIA), and cerebral infarction without residual deficits; E78.49 Other hyperlipidemia; I95.89 Other hypotension
CPT/HCPCS: 12345; 36415; 70450; 71045; 71250; 80048; 80053; 80061; 83690; 83880; 84484; 85007; 85025; 85347; 85610; 85730; 93005; 93306; 93454; 97110; 97161; 99282; C1725; C1769; C1874; C1887; C1894; C9601; C9606; J1644; J2250; J2405; J3010; J3246; J3490; J7030; Q9967

== ENCOUNTER → 2020-10-18 14:12 | Outpatient (BNVA) | payer MEDICARE, OTHER, SELFPAY | PROVIDERS: Family Provider Physician Assistant Medical; PCP Family Medicine; Visit Provider Nurse Practitioner Family | DX: I25.119 Atherosclerotic heart disease of native coronary artery with unspecified angina pectoris (principal); Z95.5 Presence of coronary angioplasty implant and graft | CPT/HCPCS: 80048 ==

== ENCOUNTER 2021-03-05 10:12 | Outpatient (RCR) | payer MEDICARE, OTHER, SELFPAY | END 2021-03-15 23:59 | disposition home or self-care (01) | LOC: SPT 10:12 | PROVIDERS: PCP Family Medicine; Referring Provider Family Medicine; Visit Provider Family Medicine | DX: R53.81 Other malaise (principal); R27.0 Ataxia, unspecified | CPT/HCPCS: 97112; 97162 ==

== ENCOUNTER 2021-03-16 06:00 | Outpatient (RCR) | payer MEDICARE, OTHER, SELFPAY | END 2021-04-15 23:59 | disposition home or self-care (01) | LOC: SPT 06:00 | PROVIDERS: PCP Family Medicine; Referring Provider Family Medicine; Visit Provider Family Medicine | DX: R53.81 Other malaise (principal); R27.0 Ataxia, unspecified | CPT/HCPCS: 97110; 97112; 97164 ==

== ENCOUNTER 2022-09-15 06:00 | Outpatient (RCR) | payer MEDICARE, OTHER, SELFPAY | END 2022-09-15 23:55 | disposition home or self-care (01) | LOC: SPT 06:00 | PROVIDERS: PCP Family Medicine; Visit Provider Orthopaedic Surgery Sports Medicine | DX: M19.012 Primary osteoarthritis, left shoulder (principal); M67.912 Unspecified disorder of synovium and tendon, left shoulder | CPT/HCPCS: 97110; 97161 ==

== ENCOUNTER 2022-09-16 06:00 | Outpatient (RCR) | payer MEDICARE, OTHER, SELFPAY | END 2022-10-15 23:59 | disposition home or self-care (01) | LOC: SPT 06:00 | PROVIDERS: PCP Family Medicine; Visit Provider Orthopaedic Surgery Sports Medicine | DX: M19.012 Primary osteoarthritis, left shoulder (principal); M67.912 Unspecified disorder of synovium and tendon, left shoulder | CPT/HCPCS: 97110 ==

== ENCOUNTER → 2022-12-29 09:41 | Outpatient (BNVA) | payer MEDICARE, OTHER, SELFPAY | PROVIDERS: PCP Family Medicine; Visit Provider Internal Medicine Cardiovascular Disease | DX: I25.10 Atherosclerotic heart disease of native coronary artery without angina pectoris (principal); I10 Essential (primary) hypertension; E78.5 Hyperlipidemia, unspecified; E03.9 Hypothyroidism, unspecified | CPT/HCPCS: 99214 ==

== ENCOUNTER → 2023-07-22 13:00 | Outpatient (BNVA) | payer MEDICARE, OTHER, SELFPAY | PROVIDERS: PCP Family Medicine; Visit Provider Internal Medicine Cardiovascular Disease | DX: E03.9 Hypothyroidism, unspecified (principal); E78.5 Hyperlipidemia, unspecified; Z95.5 Presence of coronary angioplasty implant and graft; I10 Essential (primary) hypertension; I25.119 Atherosclerotic heart disease of native coronary artery with unspecified angina pectoris; E11.69 Type 2 diabetes mellitus with other specified complication; Z79.84 Long term (current) use of oral hypoglycemic drugs | CPT/HCPCS: 99213 ==

== ENCOUNTER → 2024-01-20 13:00 | Outpatient (BNVA) | payer MEDICARE, OTHER, SELFPAY | PROVIDERS: PCP Family Medicine; Visit Provider Internal Medicine Cardiovascular Disease | DX: E11.69 Type 2 diabetes mellitus with other specified complication (principal); E78.5 Hyperlipidemia, unspecified; I25.119 Atherosclerotic heart disease of native coronary artery with unspecified angina pectoris; Z95.5 Presence of coronary angioplasty implant and graft; I10 Essential (primary) hypertension | CPT/HCPCS: 99213 ==

== ENCOUNTER → 2024-08-04 14:33 | Outpatient (BNVA) | payer MEDICARE, OTHER, SELFPAY | PROVIDERS: PCP Family Medicine; Visit Provider Internal Medicine Cardiovascular Disease | DX: I25.10 Atherosclerotic heart disease of native coronary artery without angina pectoris (principal); I10 Essential (primary) hypertension; E78.5 Hyperlipidemia, unspecified; R00.2 Palpitations | CPT/HCPCS: 99214 ==

== ENCOUNTER → 2025-01-31 09:40 | Outpatient (BNVA) | payer MEDICARE, OTHER, SELFPAY | PROVIDERS: PCP Family Medicine; Visit Provider Internal Medicine Cardiovascular Disease | DX: E78.5 Hyperlipidemia, unspecified (principal); I25.10 Atherosclerotic heart disease of native coronary artery without angina pectoris; Z95.5 Presence of coronary angioplasty implant and graft; I10 Essential (primary) hypertension | CPT/HCPCS: 99214 ==